=== PATIENT | female | born 1980 | race Caucasian/White ===

== ENCOUNTER → 2020-01-06 17:48 | Outpatient (BNVA) | payer OTHER, SELFPAY | PROVIDERS: Family Provider Nurse Practitioner; Visit Provider Emergency Medicine | DX: Z11.59 Encounter for screening for other viral diseases (principal); J06.9 Acute upper respiratory infection, unspecified | CPT/HCPCS: 87635 ==

== ENCOUNTER 2020-09-13 01:54 | Emergency (ER) | payer SELFPAY ==
[2020-09-13 01:55] VITALS: BP 113/60; PULSE 105; RESP 20; TEMP 36.7; O2SAT 94; BMI 25.4
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
[2020-09-13] MEDS: iohexol 300 mg/mL 100 mL Btl IV (02:39)
[2020-09-13 02:54] VITALS: PULSE 87; RESP 16; O2SAT 93
== END 2020-09-13 03:13 | disposition home or self-care (01) ==
PROVIDERS: Emergency Provider Emergency Medicine
DX: R07.89 Other chest pain (principal); F17.210 Nicotine dependence, cigarettes, uncomplicated
CPT/HCPCS: 70450; 71045; 71260; 72125; 99283; Q9967